=== PATIENT | female | born 1975 ===

== ENCOUNTER 2018-03-17 23:58 | Emergency (ER) | payer BC ==
[2018-03-18] MEDS ORDERED: NS 0.9% 1000 ML* 1,000 ML IV ONE (01:37)
--- NOTE | 2018-03-18 01:40 | ED ---
Abdominal Pain/Female - HPI Summary HPI Summary: This is [place] documenting for attending Chalino Perez MD. This patient is a 42 year old F presenting to [facility] with a chief complaint of RLQ pain that began this morning. The patient rates the pain 8/10 in severity. Patient reports nausea. Pt denies fever. Hx of umbilical hernia that was repaired last month in [place]. She is concerned that the mesh that was placed in irritating her. - History of Current Complaint Chief Complaint: EDAbdPain Stated Complaint: ABD PAIN Time Seen by Provider: 03/18/18 01:33 Hx Obtained From: Patient Hx Last Menstrual Period: one week ago Onset/Duration: Lasting Hours, Still Present Timing: Constant Severity Initially: Severe Severity Currently: Severe Pain Intensity: 8 Pain Scale Used: 0-10 Numeric Location: Suprapubic Radiates: No Aggravating Factor(s): Nothing Alleviating Factor(s): Nothing Associated Signs and Symptoms: Positive: Nausea. Negative: Fever Allergies/Adverse Reactions: Allergies Allergy/AdvReac Type Severity Reaction Status Date / Time No Known Allergies Allergy Verified 03/13/16 21:47 PMH/Surg Hx/FS Hx/Imm Hx Endocrine/Hematology History: Denies: Hx Sickle Cell Disease, Hx Unexplained Bleeding, Autoimmune Disease Cardiovascular History: Denies: Hx Congenital Heart Disease, Hx Congestive Heart Failure, Hx Coronary Artery Disease Respiratory History: Denies: Hx Asthma, Hx Chronic Obstructive Pulmonary Disease (COPD), Hx Lung Cancer GI History: Reports: Other GI Disorders - hernia Sensory History: Denies: Hx Deafness Neurological History: Denies: Hx CVA, Hx Dementia - Cancer History Hx Chemotherapy: No Hx Radiation Therapy: No Infectious Disease History: No Infectious Disease History: Denies: Traveled Outside the [place] in Last 30 Days - Family History Known Family History: Positive: Hypertension - Social History Alcohol Use: Occasionally Substance Use Type: Reports: None Smoking Status (MU): Current Some Day Smoker Review of Systems Negative: Fever Positive: Abdominal Pain, Nausea All Other Systems Reviewed And Are Negative: Yes Physical Exam - Summary Physical Exam Summary: Appearance: Well appearing, no pain distress Skin: warm, dry, reflects adequate perfusion Head/face: normal Eyes: EOMI, CONCHA ENT: normal Neck: supple, non-tender Respiratory: CTA, breath sounds present Cardiovascular: RRR, pulses symmetrical Abdomen: TTP in umbilical region Bowel: present Musculoskeletal: normal, strength/ROM intact Neuro: normal, sensory motor intact, A&Ox3 Triage Information Reviewed: Yes Vital Signs On Initial Exam: Initial Vitals Temp Pulse Resp BP Pulse Ox 98.4 F 70 18 148/84 100 03/18/18 00:00 03/18/18 00:00 03/18/18 00:00 03/18/18 00:00 03/18/18 00:00 Vital Signs Reviewed: Yes Diagnostics - Vital Signs Vital Signs Temp Pulse Resp BP Pulse Ox 03/18/18 00:00 98.4 F 70 18 148/84 100 - Laboratory Result Diagrams: 03/18/18 02:02 03/18/18 02:02 Lab Statement: Any lab studies that have been ordered have been reviewed, and results considered in the medical decision making process. - CT CT ABD/Pelvis CT Interpretation Completed By: Radiologist - , no evidence of acute intra abdominal pathology. Soft tissue stranding of umbilicus which may be due to inflammatory changes vs scarring ED physician has reviewed this radiology report. Abdominal Pain Fem Course/Dx - Course Course Of Treatment: This patient is a 42 year old F presenting to [facility] with a chief complaint of RLQ pain that began this morning. The patient rates the pain 8/10 in severity. Patient reports nausea. Pt denies fever. Hx of umbilical hernia that was repaired last month in [place]. She is concerned that the mesh that was placed in irritating her. CT ABD/Pelvis reveals, per radiologist, no evidence of acute intra abdominal pathology. Soft tissue stranding of umbilicus which may be due to inflammatory changes vs scarring. Blood work and UA obtained. Patient is feeling better and will be discharged and f/u with her PCP. The patient is agreeable with this plan. - Diagnoses Differential Diagnosis: Positive: Appendicitis, Diverticulitis, Renal Colic, Urinary Tract Infection Provider Diagnoses: Abdominal pain Discharge - Sign-Out/Discharge Documenting (check all that apply): Patient Departure - Discharge Plan Condition: Stable Disposition: HOME Prescriptions: Ibuprofen TAB* [Motrin TAB* 600 MG] 600 mg PO Q8H PRN #15 tab MDD 3 PRN Reason: Pain Patient Education Materials: Acute Abdominal Pain (ED) Referrals: [facility] [Outside] - 3 Days Additional Instructions: RETURN TO THE EMERGENCY DEPARTMENT FOR CHANGING OR WORSENING SYMPTOMS - Billing Disposition and Condition Condition: STABLE Disposition: Home
[2018-03-18 02:16] LABS: ABS Basophils 0 10^3/ul (0-0.2); ABS Eosinophils 0.1 10^3/ul (0-0.6); ABS Monocytes 0.4 10^3/ul (0-0.8); ABS Neutrophils 2.9 10^3/ul (1.5-7.7); ABS Nucleated RBC 0 10^3/ul; Eosinophil % 1.8 % (0-6); Hematocrit 41 % (35-47); Hemoglobin 13.8 g/dl (12.0-16.0); Lymphocyte % 36.8 % (25-47); Mean Corpuscular HGB Conc 34 g/dl (31-36); Mean Corpuscular Hemoglobin 30 pg (27-31); Mean Corpuscular Volume 89 fL (80-97); Mean Platelet Volume 7.3 um3 (7.4-10.4); Nucleated Red Blood Cells % 0.1; Platelet Count 218 10^3/ul (150-450); Red Blood Count 4.56 10^6/ul (4.00-5.40); Red Cell Distribution Width 13 % (10.5-15); White Blood Count 5.4 10^3/ul (3.5-10.8)
[2018-03-18 02:24] LABS: INR 0.92 (0.77-1.02)
[2018-03-18 02:31] LABS: EGFR Non-African American 89.8 (>60)
[2018-03-18 02:55] LABS: Urine Appearance Clear; Urine Blood Negative (Negative); Urine Color Straw; Urine Ketones Negative (Negative); Urine Protein Negative (Negative); Urine Specific Gravity 1.006 (1.010-1.030); Urine Urobilinogen Negative (Negative)
[2018-03-18] MEDS ORDERED: Iohexol 300* (CONTRAST) 10 ML SDV IV ONE (03:26)
[2018-03-18 06:35] VITALS: BP 116/93
--- NOTE | 2018-03-18 08:11 | RAD ---
INDICATION: Abdominal pain, evaluate for appendicitis. COMPARISON: There are no prior studies available for comparison. TECHNIQUE: A CT scan of the abdomen and pelvis was performed with intravenous and with oral contrast following intravenous injection of 65 ml of Omnipaque 300 nonionic contrast. Contiguous axial sections were obtained from the lung bases through the symphysis pubis. Images were reconstructed in the coronal and sagittal planes. FINDINGS: The lung bases are clear. No pleural effusion is present. Bilateral breast implants are partially visualized. The liver and spleen are within normal limits in size without significant focal abnormality. No calcified gallstones are seen. The pancreas appears to be within normal limits in size. The kidneys and adrenal glands are normal in size. No hydronephrosis is seen. No significant focal renal abnormality is seen. The aorta is normal in caliber and demonstrates homogeneous contrast opacification. No significant enlarged retroperitoneal lymph nodes are seen. The stomach, small and large bowel appear nondistended. The appendix is within normal limits. There are few scattered diverticuli within the colon. There is no evidence for diverticulitis or colitis. The uterus is retroverted in position and normal in size. No free intraperitoneal air or fluid is seen. There is focal soft tissue thickening present in the subcutaneous tissues and anterior abdominal wall in the periumbilical region. No hernia is seen. No significant focal osseous abnormality is seen. IMPRESSION: 1. NO EVIDENCE FOR ACUTE INTRA-ABDOMINAL ABNORMALITY. 2. SOFT TISSUE STRANDING AND THICKENING IN THE UMBILICAL REGION WHICH MAY BE SECONDARY TO INFLAMMATORY CHANGES OR SCARRING. RECOMMEND CLINICAL CORRELATION.
== END 2018-03-18 06:35 | disposition home or self-care (01) ==
LOC: ED 23:58
DX: R10.31 Right lower quadrant pain (principal); R11.0 Nausea; Z72.0 Tobacco use
CPT/HCPCS: 36415; 74177; 80053; 81003; 83690; 84484; 84702; 85025; 85610; 85730; 96360; 99283; Q9967